=== PATIENT | male | born 1975 | race African-American/Black ===

== ENCOUNTER 2017-06-09 10:22 | Emergency (ER) | payer BC, OTHER ==
[~2017-06-09] VITALS: Ht 185.4 cm; Wt 139.3 kg
[2017-06-09] MEDS ORDERED: LISINOPRIL20 MG PO (10:31)
[2017-06-09] MEDS ORDERED: METFORMIN HCL500 MG PO (10:31)
[2017-06-09] MEDS ORDERED: LIPITOR10 MG PO (10:32)
[2017-06-09] MEDS ORDERED: ACCUNEB SO1.25 MG/1 INH (10:32)
[2017-06-09 10:55] LABS: URINE BILIRUBIN NEGATIVE (Negative); URINE BLOOD NEGATIVE (Negative); URINE COLOR YELLOW; URINE GLUCOSE-RANDOM* NEGATIVE (Negative); URINE KETONES NEGATIVE (Negative); URINE NITRITE NEGATIVE (Negative); URINE PROTEIN (DIPSTICK) NEGATIVE (Negative); URINE SPECIFIC GRAVITY <= 1.005 (1.003-1.035); URINE UROBILINOGEN 0.2 E.U./dl (0.2-1.0)
[2017-06-09 10:56] LABS: ABSOLUTE NEUTROPHILS 4.8 thou/uL (1.4-8.2); BASOPHILS 1.4 % (0.0-2.0); EOSINOPHILS 0.9 % (0.0-3.0); HEMATOCRIT 42.4 % (42.0-52.0); HEMOGLOBIN 14.4 gm/dL (14.0-18.0); LYMPHOCYTES 43.1 % (24.0-44.0); MCV 91.2 fL (80.0-100.0); MONOCYTES 7.7 % (1.0-8.0); PLATELET COUNT 303 thou/uL (150-400); POLYS 46.9 % (36.0-66.0); RBC 4.64 mil/uL (4.50-6.00); RDW 12.4 % (10.5-14.5)
[2017-06-09 10:57] LABS: MANUAL DIFF NO
[2017-06-09 11:03] LABS: ANION GAP 6 mmol/L (7-16); BUN 16 mg/dL (7-18); CALCIUM 9.5 mg/dL (8.5-10.1); CHLORIDE 99 mmol/L (98-107); CO2 28 mmol/L (21-32); CREATININE 1.1 mg/dL (0.7-1.3); GLUCOSE 149 mg/dL (74-106); POTASSIUM 4.9 mmol/L (3.5-5.1); SODIUM 133 mmol/L (136-145)
[2017-06-09 11:09] LABS: ALBUMIN 4.1 g/dL (3.4-5.0); ALKALINE PHOSPHATASE 75 U/L (46-116); DIRECT BILIRUBIN < 0.1 mg/dL (<0.1-0.3); SGOT 35 U/L (15-37); SGPT 31 U/L (30-65); TOTAL BILIRUBIN 0.6 mg/dL (<0.1-1.0); TOTAL PROTEIN 7.9 g/dL (6.4-8.2)
[2017-06-09 14:07] VITALS: BP 139/91
== END 2017-06-09 13:55 | disposition home or self-care (01) ==
LOC: ER 10:22
PROVIDERS: Nurse Practitioner
DX: R10.32 Left lower quadrant pain (principal); F10.99 Alcohol use, unspecified with unspecified alcohol-induced disorder; Z88.1 Allergy status to other antibiotic agents; Z91.010 Allergy to peanuts